=== PATIENT | female | born 1980 | race African-American/Black ===

== ENCOUNTER 2019-02-03 12:28 | Inpatient (IN) | payer OTHER ==
[~2019-02-03] VITALS: Ht 165.1 cm; Wt 97.5 kg
[~2019-02-03 12:28] MED LIST: NKM
--- NOTE | 2019-02-03 12:31 | NUR ---
ED Nurse Note: PT BIBA R34 from home c/o chest pain x 1day, pt reports it started hurting at home, denies sob but reports hurts more when pt breathing in. noted tenderness on under left breast rib area worsen on palpation. 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 ERMD at the bedside.
[2019-02-03 12:34] VITALS: BP 124/87
--- NOTE | 2019-02-03 12:36 | Emergency Room Report ---
History of Present Illness General Chief Complaint: Chest Pain Source: Patient Present Illness HPI Patient presents by paramedics for reports of chest pain reports that is been off and on for the past month however today she felt the symptoms worse Denies any pleurisy denies any change with position Denies any vomiting or diarrhea denies any back or flank pain Patient reports history of smoking marijuana Denies any recent trauma Denies any travel Pain is left upper chest sharp Allergies: Coded Allergies: LACTOSE (Unverified Allergy, Unknown, 02/03/19) Shrimp (Unverified Allergy, Unknown, 02/03/19) Patient History Past Medical History: see triage record Pertinent Family History: none Reviewed Nursing Documentation: PMH: Agreed; PSxH: Agreed Nursing Documentation-PMH Past Medical History: No History, Except For Hx Cardiac Problems: Yes - CHF Review of Systems All Other Systems: negative except mentioned in HPI Physical Exam Vital Signs Date Time Temp Pulse Resp B/P (MAP) Pulse Ox O2 Delivery O2 Flow Rate FiO2 02/03/19 12:20 99.3 82 18 116/77 (90) 100 Room Air Sp02 EP Interpretation: reviewed, normal General Appearance: well appearing, no apparent distress Head: normocephalic, atraumatic Eyes: bilateral eye PERRL, bilateral eye EOMI ENT: hearing grossly normal, normal pharynx, TMs + canals normal, uvula midline Neck: full range of motion, supple, no meningismus, no bony tend Respiratory: lungs clear, normal breath sounds, no rhonchi, no respiratory distress, no retraction, no accessory muscle use Cardiovascular #1: normal peripheral pulses, regular rate, rhythm, no edema, no gallop, no JVD, no murmur Gastrointestinal: normal bowel sounds, non tender, soft, no mass, no organomegaly, non-distended, no guarding, no hernia, no pulsatile mass, no rebound Genitourinary: no CVA tenderness Musculoskeletal: normal inspection Neurologic: oriented x3, responsive, security systems installer III-XII nml as tested, motor strength/ tone normal, sensory intact Psychiatric: mood/affect normal Skin: normal color, no rash, warm/dry, palpation normal Lymphatic: normal inspection, no adenopathy Medical Decision Making Diagnostic Impression: Primary Impression: Acute CHF ER Course patient is a fairly complex patient with multiple differential to consideration including but not limited to cardiac cardiopulmonary and vascular emergencies Patient's x-ray shows concerning findings of congestion Further blood work was initiated and BNP does confirm increased elevation Patient CT chest does not show obvious embolism patient was further diuresed and requires inpatient care Labs Test 02/03/19 18:15 02/04/19 05:24 02/05/19 07:49 Troponin I 0.032 ng/mL (0.000-0.056) 0.026 ng/mL (0.000-0.056) White Blood Count 5.5 K/UL (4.8-10.8) Red Blood Count 5.22 M/UL (4.20-5.40) Hemoglobin 14.1 G/DL (12.0-16.0) Hematocrit 44.1 % (37.0-47.0) Mean Corpuscular Volume 84 FL (80-99) Mean Corpuscular Hemoglobin 27.0 PG (27.0-31.0) Mean Corpuscular Hemoglobin Concent 32.0 G/DL (32.0-36.0) Red Cell Distribution Width 13.6 % (11.6-14.8) Platelet Count 263 K/UL (150-450) Mean Platelet Volume 8.9 FL (6.5-10.1) Neutrophils (%) (Auto) 43.6 % (45.0-75.0) Lymphocytes (%) (Auto) 46.1 % (20.0-45.0) Monocytes (%) (Auto) 3.7 % (1.0-10.0) Eosinophils (%) (Auto) 5.4 % (0.0-3.0) Basophils (%) (Auto) 1.2 % (0.0-2.0) Sodium Level 141 MMOL/L (136-145) 140 MMOL/L (136-145) Potassium Level 3.1 MMOL/L (3.5-5.1) 3.8 MMOL/L (3.5-5.1) Chloride Level 105 MMOL/L (98-107) 106 MMOL/L (98-107) Carbon Dioxide Level 31 MMOL/L (21-32) 27 MMOL/L (21-32) Anion Gap 5 mmol/L (5-15) 7 mmol/L (5-15) Blood Urea Nitrogen 16 mg/dL (7-18) 16 mg/dL (7-18) Creatinine 0.9 MG/DL (0.55-1.30) 0.9 MG/DL (0.55-1.30) Estimat Glomerular Filtration Rate > 60 mL/min (>60) > 60 mL/min (>60) Glucose Level 104 MG/DL (74-106) 94 MG/DL (74-106) Calcium Level 8.6 MG/DL (8.5-10.1) 8.8 MG/DL (8.5-10.1) Magnesium Level 1.9 MG/DL (1.8-2.4) Pro-B-Type Natriuretic Peptide 1458 pg/mL (0-125) EKG Diagnostic Results Rate: normal Rhythm: NSR ST Segments: other - Non-specific ST, T wave changes Rhythm Strip Diag. Results EP Interpretation: yes Rate: 67 Rhythm: NSR, no PVC's, no ectopy Chest X-Ray Diagnostic Results Chest X-Ray Diagnostic Results : Chest X-Ray Ordered: Yes # of Views/Limited/Complete: 1 View Indication: Chest Pain EP Interpretation: Yes Interpretation: no consolidation, no effusion, other - pulmonary Congestion Impression: Other - Pulmonary congestion Electronically Signed by: Erich Moreira DO CT/MRI/US Diagnostic Results CT/MRI/US Diagnostic Results : Impression CT chestIMPRESSION: 1. No pulmonary embolus identified. 2. No aortic aneurysm or dissection. 3. Interlobular septal thickening, compatible with fluid overload. Bronchial wall thickening may represent bronchitis versus fluid overload. 4. Mild groundglass opacity in the left upper lobe may represent pulmonary edema versus infectious/inflammatory process. 5. Cardiomegaly. Last Vital Signs Date Time Temp Pulse Resp B/P (MAP) Pulse Ox O2 Delivery O2 Flow Rate FiO2 02/03/19 12:20 99.3 82 18 116/77 (90) 100 Room Air Status: improved Disposition: ADMITTED INPATIENT Condition: Erich Lebron DO Feb 03, 2019 12:36
[2019-02-03] MEDS ORDERED: HYDROcodone/Acetamin 10/325 tab ORAL ONE (12:45)
[2019-02-03] MEDS ORDERED: Ketorolac 60mg Inj IM ONE (12:45)
[2019-02-03] MEDS ORDERED: Isovue-370 150ml vial INJ PRN (13:00)
[2019-02-03] MEDS ORDERED: DiphenhydrAMINE 50mg/ml Inj IVP ONE (13:00)
--- NOTE | 2019-02-03 13:12 | Diagnostic Imaging Report ---
EXAM: XR Chest, 1 View CLINICAL HISTORY: CP TECHNIQUE: Frontal view of the chest. COMPARISON: None FINDINGS: Hardware: None. Lungs/pleura: Pulmonary vasculature congestion/pulmonary edema. No focal consolidation. No pleural effusion or pneumothorax. Heart/mediastinum: Mild enlargement of the cardiac silhouette. Soft tissues: Unremarkable. Bones: No acute fracture. Upper abdomen: Normal. IMPRESSION: Mild enlargement of the cardiac silhouette with pulmonary vasculature congestion/edema.
--- NOTE | 2019-02-03 13:50 | NUR ---
ED Nurse Note: PT APPEARS TO BE CALMER AT THIS TIME. VSS. PT WENT TO THE RESTROOM WITH STEADY GAIT.
[2019-02-03 13:53] LABS: BASOPHILS % (AUTO) 1.6 % (0.0-2.0); EOSINOPHILS % (AUTO) 1.9 % (0.0-3.0); HEMOGLOBIN 13.3 G/DL (12.0-16.0); LYMPHOCYTES % (AUTO) 29.3 % (20.0-45.0); MEAN CORPUSCULAR VOLUME 85 FL (80-99); MONOCYTES % (AUTO) 6.6 % (1.0-10.0); NEUTROPHILS % (AUTO) 60.7 % (45.0-75.0); PLATELET COUNT 254 K/UL (150-450); RED BLOOD COUNT 4.84 M/UL (4.20-5.40); RED CELL DISTRIBUTION WIDTH 13.7 % (11.6-14.8)
--- NOTE | 2019-02-03 13:55 | NUR ---
ED Nurse Note: PT CAME BACK FROM REST ROOM. VSS.
[2019-02-03 14:06] LABS: ANION GAP 5 mmol/L (5-15); BLOOD UREA NITROGEN 15 mg/dL (7-18); CALCIUM 8.5 MG/DL (8.5-10.1); CARBON DIOXIDE 27 MMOL/L (21-32); CHLORIDE 109 MMOL/L (98-107); CREATININE 0.7 MG/DL (0.55-1.30); POTASSIUM 4.5 MMOL/L (3.5-5.1); SODIUM 141 MMOL/L (136-145)
[2019-02-03 14:24] LABS: ALANINE AMINOTRANSFERASE 62 U/L (12-78); ALBUMIN 2.7 G/DL (3.4-5.0); ALBUMIN/GLOBULIN RATIO 0.9 (1.0-2.7); ALKALINE PHOSPHATASE 55 U/L (46-116); ASPARTATE AMINO TRANSFERASE 47 U/L (15-37); BILIRUBIN,TOTAL 0.4 MG/DL (0.2-1.0); CKMB 1.6 NG/ML (0.0-3.6); CREATINE KINASE 163 U/L (26-308)
[2019-02-03 14:30] VITALS: BP 135/70
--- NOTE | 2019-02-03 14:39 | NUR ---
ED Nurse Note: PT TAKEN TO CT.
--- NOTE | 2019-02-03 14:50 | NUR ---
ED Nurse Note: PT BACK FROM CT VIA KERRY. PT WANTED TO GO TO RESTROOM TO URINATE AGAIN.
--- NOTE | 2019-02-03 15:57 | NUR ---
ED Nurse Note: REPORT GIVEN TO TANK KATZ OF TELEMETRY UNIT.
--- NOTE | 2019-02-03 16:00 | NUR ---
ED Nurse Note: ER CHARGE NURSE OKAY TO TRANSFER PT WITHOUT ADMISSION PACKET.
--- NOTE | 2019-02-03 16:20 | NUR ---
NURSE NOTES: Received report from GIANNA Hall. Patient transferred from ED to tele. panel monitor on. Belonging list checked with RN, patient refused to count on money, $55. Patient able to ambulate from [facility] to [facility] bed steady, AOx4, denies pain at this time, patient on room air. VS at the time of arrival, BP 134/87, HR 90, T 98.5, O2 sat 95%. IV on right AC 20G, left hand 20G, asymptomatic, patent, intact. Skin is intact, patient wear abdominal blinder for umbilical hernia. Bed in lowest position, side rails upx2, call light within reach. Will continue to monitor.
--- NOTE | 2019-02-03 16:24 | Diagnostic Imaging Report ---
EXAM: CT Angiography Chest With Intravenous Contrast CLINICAL HISTORY: CP TECHNIQUE: Axial computed tomographic angiography images of the chest with intravenous contrast using pulmonary embolism protocol. CTDI is 36.85 mGy and DLP is 1278.63 mGy-cm. One or more of the following dose reduction techniques were used: automated exposure control, adjustment of the mA and/or kV according to patient size, use of iterative reconstruction technique. MIP reconstructed images were created and reviewed. COMPARISON: Chest radiograph on 02/03/2019 FINDINGS: Lung parenchyma: Interlobular septal thickening is suggestive of fluid overload. Mild groundglass opacity in the left upper lobe may represent pulmonary edema versus infectious/inflammatory process. Pleural space: Small right greater than left pleural effusions. Mediastinum/nida: Nonspecific prominent mediastinal and hilar lymph nodes. Heart: Mild cardiomegaly. No significant pericardial effusion. Vasculature: Normal. No pulmonary embolus. Aorta: Normal. No aneurysm or dissection. Airways: Bronchial wall thickening may represent bronchitis versus fluid overload. Bones: Normal. No bony lesion or acute fracture. Muscles: No mass. Subcutaneous tissues: Normal. Upper abdomen: Normal. IMPRESSION: 1. No pulmonary embolus identified. 2. No aortic aneurysm or dissection. 3. Interlobular septal thickening, compatible with fluid overload. Bronchial wall thickening may represent bronchitis versus fluid overload. 4. Mild groundglass opacity in the left upper lobe may represent pulmonary edema versus infectious/inflammatory process. 5. Cardiomegaly.
--- NOTE | 2019-02-03 16:52 | NUR ---
NURSE NOTES: Paged Dr. Barker for admission order, per Dr. Barker, call Dr. Vargas for admission order. Paged Dr. Vargas for admission order. Admission orders noted, entered, carried out. Will continue to monitor.
--- NOTE | 2019-02-03 16:53 | NUR ---
NURSE NOTES: Dr. Vargas made aware D-dimer 1.32, new orders given with admission orders. Order noted, entered, carried out.
[2019-02-03] MEDS ORDERED: Albuterol/Ipratropium 3ml neb HHN PRN (17:15)
[2019-02-03] MEDS: Captopril 12.5mg tab ORAL SCH (17:57)
--- NOTE | 2019-02-03 18:34 | History & Physical ---
History and Physical History & Physicial History and Physical HPI Patient is a 38 year old woman with history of Congestive Heart Failure who presents with chest pain reports that is been off and on for the past month however today she felt the symptoms worse Pain is left upper chest sharp Denies any pleurisy denies any change with position Denies any vomiting or diarrhea denies any back or flank pain No Cardiac ischemia noted on EK< Pulmonary Congestion on CXR, No PE on CT angiogram Patient reports history of smoking marijuana Denies any recent trauma Denies any recent travel Allergies: LACTOSE Shrimp Past Medical History: Congestive Heart Failure Pertinent Family History: none Reviewed Nursing Documentation: PMH: Agreed; PSxH: Agreed All Other Systems: negative except mentioned in HPI Physical Exam Vital Signs Noted Date Time Temp Pulse Resp B/P (MAP) Pulse Ox O2 Delivery O2 Flow Rate FiO2 02/03/19 12:20 99.3 82 18 116/77 (90) 100 Room Air General Appearance: well appearing, no apparent distress Head: normocephalic, atraumatic Eyes: bilateral eye PERRL, bilateral eye EOMI ENT: hearing grossly normal, normal pharynx Neck: full range of motion, supple, no meningismus, no bony tend Respiratory: lungs clear, normal breath sounds, no rhonchi, no respiratory distress, no retraction, no accessory muscle use Cardiovascular: HS1, HS2 normal, normal peripheral pulses, regular rate, rhythm , no edema, no gallop, no JVD, no murmur Gastrointestinal: normal bowel sounds, non tender, soft, no mass, no organomegaly, non-distended, no guarding, no hernia, no pulsatile mass, no rebound Genitourinary: no CVA tenderness Musculoskeletal: normal inspection Neurologic: oriented x3, responsive, straightener and aligner III-XII nml as tested, motor strength/ tone normal, sensory intact Psychiatric: mood/affect normal Skin: normal color, no rash, warm/dry, palpation normal Lymphatic: normal inspection, no adenopathy Labs noted EKG noted Impression: Congestive Heart Failure Chest pain CT chest negative for PE Pulmonary congestion on CXR Troponin negative Plan: Diurese PRN O2 PRN Pain Meds LE dupplex Labs Pain meds Cardiac Consultation PPX Tom Vargas MD Feb 03, 2019 18:34
--- NOTE | 2019-02-03 19:20 | NUR ---
HAND-OFF: Report given to GIANNA Clark.
--- NOTE | 2019-02-03 19:20 | NUR ---
NURSE NOTES: Received patient from Handy RN. Patient is in bed with no signs of distress and tolerating room air well. Oriented X4 and talking. Bed is at its lowest position and call light in reach. Will continue to monitor.
[2019-02-03] MEDS: Heparin 5000 units/ml inj SUBQ SCH (21:28)
[2019-02-03] MEDS: Hydromorphone 0.5mg/0.5ml inj IVP PRN (22:28)
[2019-02-04] MEDS: Hydromorphone 0.5mg/0.5ml inj IVP PRN ×2 (04:11→16:46)
[2019-02-04 07:14] LABS: BASOPHILS % (AUTO) 1.2 % (0.0-2.0); EOSINOPHILS % (AUTO) 5.4 % (0.0-3.0); HEMATOCRIT 44.1 % (37.0-47.0); HEMOGLOBIN 14.1 G/DL (12.0-16.0); LYMPHOCYTES % (AUTO) 46.1 % (20.0-45.0); MEAN CORPUSCULAR VOLUME 84 FL (80-99); MONOCYTES % (AUTO) 3.7 % (1.0-10.0); NEUTROPHILS % (AUTO) 43.6 % (45.0-75.0); PLATELET COUNT 263 K/UL (150-450); RED BLOOD COUNT 5.22 M/UL (4.20-5.40); RED CELL DISTRIBUTION WIDTH 13.6 % (11.6-14.8); WHITE BLOOD COUNT 5.5 K/UL (4.8-10.8)
--- NOTE | 2019-02-04 07:30 | NUR ---
HAND-OFF: Report given to Karis KATZ.
[2019-02-04 07:38] LABS: ANION GAP 5 mmol/L (5-15); BLOOD UREA NITROGEN 16 mg/dL (7-18); CALCIUM 8.6 MG/DL (8.5-10.1); CARBON DIOXIDE 31 MMOL/L (21-32); CHLORIDE 105 MMOL/L (98-107); CREATININE 0.9 MG/DL (0.55-1.30); POTASSIUM 3.1 MMOL/L (3.5-5.1); SODIUM 141 MMOL/L (136-145)
--- NOTE | 2019-02-04 07:49 | Physician Query ---
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 BNP 3302, trop 0.023/0.032 , cxr- mild enlargement of cardiac silhouette with pulmonary vasculature congestion/edema. Lasix 20 mg ivp bid, captopril 6.25 mg tid. CHF documented in the history and physcial. Please Clarify: Acuity [] Acute [] Chronic [] Acute on Chronic Type [] Systolic [] Diastolic [] Systolic & Diastolic (Combined) [] Other: Present on Admission: [] Yes [] No [] Clinically Undetermined Physician signature Date Please also document in your Progress Notes and/or Discharge Summary and indicate if the condition was present on admission. MTDD
--- NOTE | 2019-02-04 07:56 | NUR ---
NURSE NOTES: Patient is alert and oriented. Patient eating breakfast. No reports of chest pain or shortness of breath. Side rails are upx2, bed is locked, in lowest position, and call light is within reach. Will continue to monitor.
[2019-02-04 08:00] VITALS: BP 146/90
[2019-02-04] MEDS: Captopril 12.5mg tab ORAL SCH ×3 (08:56→17:18)
[2019-02-04] MEDS: Heparin 5000 units/ml inj SUBQ SCH ×2 (08:57→20:41)
[2019-02-04 12:00] VITALS: BP 114/78
[2019-02-04] MEDS ORDERED: HYDROcodone/Acetamin 5/325 tab ORAL PRN (14:00)
[2019-02-04 16:00] VITALS: BP 107/71
--- NOTE | 2019-02-04 18:48 | NUR ---
NURSE NOTES: Patient reports perineal discomfort. Dr. Vargas notified. New order received.
--- NOTE | 2019-02-04 18:48 | Pulmonology Progress Note ---
Assessment/Plan Assessment/Plan Progress Note HPI Patient is a 38 year old woman with history of Congestive Heart Failure who presents with chest pain reports that is been off and on for the past month however today she felt the symptoms worse Pain is left upper chest sharp Denies any pleurisy denies any change with position Denies any vomiting or diarrhea denies any back or flank pain No Cardiac ischemia noted on EK< Pulmonary Congestion on CXR, No PE on CT angiogram Patient reports history of smoking marijuana Denies any recent trauma Denies any recent travel No new complaints Allergies: LACTOSE Shrimp Past Medical History: Congestive Heart Failure Pertinent Family History: none Reviewed Nursing Documentation: PMH: Agreed; PSxH: Agreed All Other Systems: negative except mentioned in HPI Physical Exam Vital Signs Noted General Appearance: well appearing, no apparent distress Head: normocephalic, atraumatic Eyes: bilateral eye PERRL, bilateral eye EOMI ENT: hearing grossly normal, normal pharynx Neck: full range of motion, supple, no meningismus, no bony tend Respiratory: lungs clear, normal breath sounds, no rhonchi, no respiratory distress, no retraction, no accessory muscle use Cardiovascular: HS1, HS2 normal, normal peripheral pulses, regular rate, rhythm , no edema, no gallop, no JVD, no murmur Gastrointestinal: normal bowel sounds, non tender, soft, no mass, no organomegaly, non-distended, no guarding, no hernia, no pulsatile mass, no rebound Genitourinary: no CVA tenderness Musculoskeletal: normal inspection Neurologic: oriented x3, responsive, instrumentation chemist III-XII nml as tested, motor strength/ tone normal, sensory intact Psychiatric: mood/affect normal Skin: normal color, no rash, warm/dry, palpation normal Lymphatic: normal inspection, no adenopathy Labs noted EKG noted Impression: Congestive Heart Failure Chest pain CT chest negative for PE Pulmonary congestion on CXR Troponin negative Plan: Diurese PRN O2 PRN Pain Meds LE dupplex Labs Pain meds Cardiac Consultation PPX Subjective ROS Limited/Unobtainable: No Allergies: Coded Allergies: LACTOSE (Unverified Allergy, Unknown, 02/03/19) Shrimp (Unverified Allergy, Unknown, 02/03/19) Objective Last 24 Hour Vital Signs Date Time Temp Pulse Resp B/P (MAP) Pulse Ox O2 Delivery O2 Flow Rate FiO2 02/04/19 17:18 109/76 02/04/19 16:00 98.7 98 18 107/71 (83) 100 02/04/19 16:00 100 02/04/19 12:44 114/78 02/04/19 12:00 98.1 96 18 114/78 (90) 99 02/04/19 12:00 103 02/04/19 08:56 146/90 02/04/19 08:14 99 18 96 Room Air 21 02/04/19 08:00 108 02/04/19 08:00 97.7 99 18 146/90 (108) 96 02/04/19 08:00 Room Air 02/04/19 03:54 101 02/04/19 00:00 90 02/03/19 22:12 92 18 98 Room Air 21 02/03/19 21:00 Room Air Intake and Output 02/03/19 02/04/19 19:00 07:00 Intake Total 150 ml 200 ml Balance 150 ml 200 ml Intake Oral 150 ml 200 ml # Voids 1 Laboratory Tests 02/04/19 05:24: White Blood Count 5.5, Red Blood Count 5.22, Hemoglobin 14.1, Hematocrit 44.1, Mean Corpuscular Volume 84, Mean Corpuscular Hemoglobin 27.0, Mean Corpuscular Hemoglobin Concent 32.0, Red Cell Distribution Width 13.6, Platelet Count 263, Mean Platelet Volume 8.9, Neutrophils (%) (Auto) 43.6L, Lymphocytes (%) (Auto) 46.1H, Monocytes (%) (Auto) 3.7, Eosinophils (%) (Auto) 5.4H, Basophils (%) ( Auto) 1.2, Sodium Level 141, Potassium Level 3.1L, Chloride Level 105, Carbon Dioxide Level 31, Anion Gap 5, Blood Urea Nitrogen 16, Creatinine 0.9, Estimat Glomerular Filtration Rate > 60, Glucose Level 104, Calcium Level 8.6, Troponin I 0.026 Current Medications Medications (Trade) Dose Ordered Sig/[place] Route PRN Reason Start Time Stop Time Status Last Admin Dose Admin Acetaminophen (Tylenol) 650 mg Q6H PRN ORAL Mild Pain/Temp > 100.5 02/03/19 17:15 03/05/19 17:14 Acetaminophen/ Hydrocodone Bitart ([place] 5/325) 1 tab Q6H PRN ORAL Moderate Pain (Pain Scale 4-6) 02/04/19 14:00 02/11/19 13:59 02/04/19 14:11 Albuterol/ Ipratropium (Albuterol/ Ipratropium) 3 ml Q6H PRN HHN Shortness of breath 02/03/19 17:15 02/08/19 17:14 Captopril (Capoten) 6.25 mg TID ORAL 02/03/19 18:00 03/05/19 17:59 02/04/19 12:44 Diphenhydramine HCl (Benadryl) 25 mg Q6H PRN ORAL Itching 02/03/19 17:15 03/05/19 17:14 Doxycycline Monohydrate (Doxycycline Monohydrate) 100 mg BID ORAL 02/04/19 09:00 02/10/19 22:59 02/04/19 17:25 Furosemide (Lasix) 20 mg BID IV 02/03/19 18:00 03/05/19 17:59 02/04/19 17:25 Heparin Sodium (Porcine) (Heparin 5000 units/ml) 5,000 units EVERY 12 HOURS SUBQ 02/03/19 21:00 03/05/19 20:59 02/04/19 08:57 Hydromorphone HCl (Dilaudid) 0.5 mg Q3H PRN IVP Severe Pain (Pain Scale 7-10) 02/03/19 17:15 02/10/19 17:14 02/04/19 16:46 Iopamidol (Isovue-370 150ml) 150 ml NOW PRN INJ Radiology Procedure 02/03/19 13:00 02/05/19 12:59 Ondansetron HCl (Zofran) 4 mg Q8H PRN IVP Nausea & Vomiting 02/03/19 17:15 03/05/19 17:14 02/04/19 16:46 Potassium Chloride (K-Dur) 20 meq DAILY ORAL 02/04/19 09:00 03/06/19 08:59 02/04/19 08:53 Tom Vargas MD Feb 04, 2019 18:48
--- NOTE | 2019-02-04 19:24 | NUR ---
HAND-OFF: Report given to GIANNA Gonzales.
--- NOTE | 2019-02-04 19:25 | NUR ---
NURSE NOTES: Received bedside report from GIANNA Marquez.Patient stable,A&O x4,ST on hospital monitor, tolerated r/air well,no c/o pain,no respiratory distress noted,BS active in all quadrants,skin intact.IV asymptomatic,intact on L hand G 22 SL,bed secured,call light within a reach,family at bedside,will continue to monitor
[2019-02-04 20:00] VITALS: BP 117/75
[2019-02-04] MEDS: Miconazole 2% Cr 15gm TOPIC SCH (20:41)
--- NOTE | 2019-02-04 23:40 | NUR ---
NURSE NOTES: Pt became mad d/t positive PCP urine test and Marijuana,she stats that it is mistake and she wants to leave AMA,pt removed child monitor,charge nurse aware.
--- NOTE | 2019-02-04 23:45 | Progress Note ---
DATE: 02/04/2019 CARDIOLOGY PROGRESS NOTE SUBJECTIVE: The patient is quite agitated and upset about the results of her tox screen. She denies taking drugs. She is also on a 1 step program and states that she will "be in trouble" if they found out these results. The patient has sharp chest pain. No shortness of breath. OBJECTIVE: VITAL SIGNS: Blood pressure 109/76, pulse 98, respirations 18. LUNGS: Clear. CARDIAC: Regular rhythm and rate. Normal S1, S2 with a 1/6 systolic murmur at apex. ABDOMEN: Soft. EXTREMITIES: Trace edema. LABORATORY AND DIAGNOSTIC DATA: CT angiogram of the chest was negative for any pulmonary embolus or aortic aneurysm/dissection. Potassium 3.1. Troponins remained negative. Pro-natriuretic peptide yesterday was 3300. Echocardiogram revealed a ejection fraction of 25% with global hypokinesis. IMPRESSION: 1. Drug-induced cardiomyopathy. 2. Acute on chronic systolic congestive heart failure. 3. PCP use. 4. Marijuana use. 5. Low likelihood for acute coronary insufficiency. PLAN: 1. Maximize anti-failure regimen. We will switch to once a day RADHA inhibitor for better compliance. 2. Long-term diuretic therapy. 3. Re-evaluation in three months for cardiac defibrillator if she is compliant with medications and drugs. Tom Tsai M.D. DR: PRAITMA JOB#: [id number] CC:
[2019-02-05] VITALS: BP 114/78
--- NOTE | 2019-02-05 | NUR ---
NURSE NOTES: Pt changed her mind and stay in a hospital,radiographer technologist refused.
--- NOTE | 2019-02-05 | Consultation ---
DATE OF CONSULTATION: 02/04/2019 CARDIOLOGY CONSULT: CONSULTING PHYSICIAN: Tom Tsai M.D. REFERRING PHYSICIAN: Jones Barker M.D. REASON FOR CONSULTATION: Chest pain. HISTORY OF PRESENT ILLNESS: This is a 38-year-old female. She presented to the hospital with chest pain. Her workup in the emergency room included a negative troponin level. CT angiogram of the chest that was negative for pulmonary embolus and/or aortic dissection and a natriuretic peptide over 3000. PAST MEDICAL HISTORY: Drug use. FAMILY HISTORY: Noncontributory. SOCIAL HISTORY: As above. She denies smoking or alcohol abuse. ALLERGIES: Include lactose and shrimp. MEDICATIONS: Not known. PHYSICAL EXAMINATION: VITAL SIGNS: Blood pressure 116/77, pulse 82, respirations 18, temperature 99.3. LUNGS: With few rales. CARDIAC: Regular rhythm and rate. Normal S1, S2 with a 1/6 systolic murmur at apex. Point of maximum impulse is diffuse. ABDOMEN: Soft. EXTREMITIES: With trace edema. DIAGNOSTIC AND LABORATORY DATA: Chest x-ray with pulmonary venous congestion. Drug tox screen is positive for PCP and marijuana. IMPRESSION: 1. Acute on chronic congestive heart failure, systolic versus diastolic. 2. Anginal syndrome. 3. PCP abuse. PLAN: 1. Diuresis. 2. Serial troponins. 3. Cardiac monitoring. 4. Anti-platelet therapy. 5. PRN nitrates. 6. Avoid beta-blockers in this clinical setting. Tom Tsai M.D. DR: FANTA JOB#: [id number] CC:
--- NOTE | 2019-02-05 07:00 | NUR ---
HAND-OFF: Report given to GIANNA Marquez.Patient stable.
--- NOTE | 2019-02-05 07:44 | NUR ---
NURSE NOTES: Patient is alert and oriented. Patient does not have reports of chest pain or shortness of breath. Side rails are up x2, bed is locked, in lowest position, and call light is within reach. Will continue to monitor.
--- NOTE | 2019-02-05 07:55 | NUR ---
NURSE NOTES: Patient not wearing media monitor. Patient removed monitor last night and refused to have it put back on.
[2019-02-05 08:00] VITALS: BP 112/64
[2019-02-05] MEDS: Heparin 5000 units/ml inj SUBQ SCH (09:00)
[2019-02-05] MEDS ORDERED: Lisinopril 20mg tab ORAL SCH (09:00)
[2019-02-05] MEDS ORDERED: Spironolactone 25mg tab ORAL SCH (09:00)
[2019-02-05] MEDS: Miconazole 2% Cr 15gm TOPIC SCH (09:25)
[2019-02-05 09:34] LABS: ANION GAP 7 mmol/L (5-15); BLOOD UREA NITROGEN 16 mg/dL (7-18); CALCIUM 8.8 MG/DL (8.5-10.1); CARBON DIOXIDE 27 MMOL/L (21-32); CHLORIDE 106 MMOL/L (98-107); CREATININE 0.9 MG/DL (0.55-1.30); POTASSIUM 3.8 MMOL/L (3.5-5.1); SODIUM 140 MMOL/L (136-145)
--- NOTE | 2019-02-05 09:56 | NUR ---
*-* NO INSURANCE INFORMATION IN THE BAR UNABLE TO SEND CLINICALS OR REVIEWS *-*
[2019-02-05 12:00] VITALS: BP 114/74
--- NOTE | 2019-02-05 14:46 | NUR ---
CASE MANAGEMENT:REVIEW 38 YR OLD FEMALE BIBA FROM HOME CC; CHEST PAIN SI: CHEST PAIN. CHF 99.3 82 18 116/77 100% ON RA BNP+3302 TROPONIN(-) URINE(+) PCP IS: ASA PO GIVEN EN ROUTE NITRO GIVEN EN ROUTE IV TORADOL PERCOCET PO IV BENADRYL IV LASIX X2 CTA CHEST CHEST XRAY : TO TELEMETRY PLAN: 2DECHO VENOUS DUPLEX
[2019-02-05 16:00] VITALS: BP 128/81
[2019-02-05] MEDS ORDERED: LISINOPRIL20 MG ORAL (16:15)
[2019-02-05] MEDS ORDERED: FUROSEMIDE20 M1 ORAL (16:15)
[2019-02-05] MEDS ORDERED: SPIRONOLACTONE25 MG ORAL (16:16)
[2019-02-05] MEDS ORDERED: VIBRAMYCIN100 MG ORAL (16:17)
[2019-02-05] MEDS ORDERED: ALBUTEROL2.5 MG/3 M INH (16:19)
[2019-02-05] MEDS ORDERED: MICONAZOLE 324 GM VG (16:19)
--- NOTE | 2019-02-05 16:41 | NUR ---
Social Service Note Patient denies substance abuse and states someone tainted her urine. Patient willing to give another urine sample to clear her name. Patient discharge. Letter completed to return to work.
--- NOTE | 2019-02-05 17:30 | NUR ---
NURSE NOTES: Patient discharged Home. Patient arranged own transportation. Belongings reviewed and accounted for. Discharge instructions with prescription given to patient. IV removed. ID bracelet removed. Patient stable upon discharge.
--- NOTE | 2019-02-06 03:31 | Progress Note ---
DATE: 02/05/2019 SUBJECTIVE: The patient continues to insist that she has not used PCP and insists that someone tainted her urine. No chest pain. Vitals are stable. No clinical signs of acute congestive heart failure. This patient has severe cardiomyopathy with systolic dysfunction likely due to chronic drug use. Medication regimen reviewed, reconciled, and discussed with the patient for long-term benefit. The patient is also advised to avoid PCP as it can lead to further cardiac compromise and sudden cardiac . Tom Tsai M.D. DR: JERMAINE JOB#: [id number] CC:
--- NOTE | 2019-02-06 10:02 | Discharge Summary ---
Discharge Summary Discharge Summary _ DATE OF ADMISSION: 02/03/2019 DATE OF DISCHARGE: 02/05/2019 DISCHARGED BY: Dr. Vargas REASON FOR ADMISSION: 38 years old female with past medical history of congestive heart failure , presented with chest pain. Pain located in left upper chest, sharp , no radiation. She denied any pleurisy. She denied change in chest pain with change in position. She denied nausea, vomiting, diarrhea. She denied back or flank pain. Patient reported smoking of marijuana. No recent trauma or injury to chest. Upon evaluation vital signs were stable. Chest x-ray revealed mild enlargement of the cardiac silhouette with pulmonary vasculature congestion/edema. CT of the chest revealed bronchial wall thickening, possibly representing bronchitis versus fluid overload. Mild cardiomegaly. No pulmonary emboli. Mild ground-glass opacity in the left upper lobe, possibly representing pulmonary edema versus infectious/inflammatory process. No aortic aneurysm or dissection. Laboratory work-up revealed no leukocytosis, stable hemoglobin and hematocrit. Troponin negative. EKG revealed normal sinus rhythm, no acute ischemic changes. Stable electrolytes and renal parameters. Pro BNP 3302. Urine toxicology screen positive for PCP and marijuana Urine test negative. Patient subsequently admitted to telemetry floor for further management CONSULTANTS: platform inspector Dr. Tsai [facility]SE: Patient admitted to telemetry floor. Patient started on diuresis with close monitoring of volumes and cardiorenal parameters. Supplemental oxygen provided as needed to keep pulse oximetry above 92%. Pulmonary toilet provided. Patient started on empiric antibiotics. Pain management was addressed. DVT and GI prophylaxis provided Control Integration Engineer followed. Echocardiogram revealed global left ventricular hypokinesis with ejection fraction of 20 to 25%. No evidence of left ventricular hypertrophy. Moderate left ventricular enlargement. Moderate mitral regurgitation. Mitral inflow indicated increased left atrial pressure suggestive restrictive pattern grade 3. Right ventricular systolic pressure of 40 consistent with a mild pulmonary hypertension. Mild to moderate pulmonic regurgitation. Serial troponin were negative. EKG revealed no acute ischemia. Patient was ruled out for acute SD. Chest pain was likely due to acute CHF exacerbation. Anti-failure medication regimen was maximized. Patient will require long-term diuretic therapy. Patient was on guideline recommended anti-failure medication regimen, including RADHA , and diuretic Lasix and Aldactone. Beta-blockers were avoided in this clinical setting due to active drug use. Nitrates were on board as needed. Per platform inspector , patient had a low likelihood for acute coronary insufficiency. Control Integration Engineer recommended to reevaluate in 3 months for cardiac defibrillator, if she is compliant with medication and abstinent from street drugs Patient clinically stabilized. No chest pain. Vital signs stable. No clinical signs of acute congestive heart failure. Patient was explained that she had severe cardiomyopathy with systolic dysfunction, likely due to chronic drug use. Patient was counseled on compliance with medication regimen. Patient was advised to avoid PCP as it can lead to further cardiac compromise and sudden cardiac . nozzle worker e met with patient. Patient denied substance abuse and stated that someone tainted her urine.. Patient clinically stabilized and was ready for discharge home. FINAL DIAGNOSES: Acute on chronic systolic congestive heart failure Drug-induced cardiomyopathy PCP use Marijuana use DISCHARGE MEDICATIONS: See Medication Reconciliation list. DISCHARGE INSTRUCTIONS: Patient was discharged home . Follow up with primary care provider in one week. I have been assigned to dictate discharge summary for this account. I was not involved in the patient's management. Sofi Dillard NP Feb 06, 2019 10:02
--- NOTE | 2019-02-06 13:54 | Cardiology Report ---
APPROVED REPORT EXAM: Two-dimensional and M-mode echocardiogram with Doppler and color Doppler. INDICATION Chest Pain M-Mode DIMENSIONS IVSd1.0 (0.7-1.1cm)Left Atrium (MM)4.4 (1.6-4.0cm) LVDd7.2 (3.5-5.6cm)Aortic Root2.9 (2.0-3.7cm) PWd0.9 (0.7-1.1cm)Aortic Cusp Exc.2.3 (1.5-2.0cm) LVDs5.9 (2.5-4.0cm) PWs1.3 cm Global left ventricular hypokinesis. Moderate left ventricular enlargement. Left ventricular ejection fraction estimated to be 20-25 %. No evidence of left ventricular hypertrophy. No evidence of pericardial effusion. Mild left atrial enlargement. Mild right ventricular enlargement. Right atrial chamber size is within normal limits. Normal aortic valve structure. Thickened mitral valve leaflets with normal excursion. Mitral annulus and aortic root calcification. Normal pulmonic valve structure. Normal tricuspid valve structure. IVC is normal in size with physiological collapse. A color flow and spectral Doppler study was performed and revealed: Trace aortic regurgitation. Moderate mitral regurgitation. Mitral inflow indicates increased left atrial pressure, suggestive restrictive pattern (Grade III). Mild to moderate tricuspid regurgitation. Tricuspid systolic velocities suggests peak right ventricular systolic pressure of 40 mmHg, consistent with mild pulmonary hypertension. Mild to moderate pulmonic regurgitation present.
--- NOTE | 2019-02-06 15:07 | Cardiology Report ---
APPROVED REPORT EKG Measurement Heart [id number] Sinus tachycardia Possible Left atrial enlargement Borderline ECG
== END 2019-02-05 17:16 | disposition home or self-care (01) | DRG 194 ==
LOC: EDBD 12:28 → EMR 13:30 → EDBEDREQ 13:49 → 2E 15:00 → EDBEDREQ 15:28
DX: I50.23 Acute on chronic systolic (congestive) heart failure (principal); I27.20 Pulmonary hypertension, unspecified; I42.7 Cardiomyopathy due to drug and external agent; F16.10 Hallucinogen abuse, uncomplicated; I20.9 Angina pectoris, unspecified; F12.90 Cannabis use, unspecified, uncomplicated; I34.0 Nonrheumatic mitral (valve) insufficiency
CPT/HCPCS: 36415; 71045; 71275; 80048; 80053; 80307; 81025; 82550; 82553; 83735; 83880; 84484; 85025; 85379; 87081; 93005; 93306; 94664; 96372; 99285; J2405; J8499

== ENCOUNTER 2019-03-12 23:13 | Emergency (ER) | payer OTHER ==
[~2019-03-12] VITALS: Ht 165.1 cm; Wt 99.8 kg
[~2019-03-12 23:13] MED LIST changes: +ALBUTEROL2.5 MG/3 M INH; +FUROSEMIDE20 M1 ORAL; +LISINOPRIL20 MG ORAL; +MICONAZOLE 324 GM VG; +SPIRONOLACTONE25 MG ORAL; +VIBRAMYCIN100 MG ORAL
[2019-03-12 23:18] VITALS: BP 134/84
--- NOTE | 2019-03-12 23:18 | NUR ---
ED Nurse Note: PATIENT AMBULATED TO ED FOR STD EXPOSURE X2 DAYS. Pt is AO x 4times, VSS, on room air no distress. ERMD seen Pt at bedside.
[2019-03-13] MEDS ORDERED: Azithromycin 250mg tab ORAL ONE
[2019-03-13] MEDS ORDERED: Lidocaine 1% MPF 10mg/ml 5ml INJ ONE
[2019-03-13] MEDS ORDERED: FLUCONAZOLE150 MG ORAL (00:18)
[2019-03-13 00:24] VITALS: BP 126/79
[2019-03-13 00:25] VITALS: BP 126/79
--- NOTE | 2019-03-13 00:25 | NUR ---
ER DISCHARGE NOTE: Patient is cleared to be discharged per ERMD, pt is aox4, on room air, with stable vital signs. pt was given dc and prescription instructions, pt was able to verbalize understanding, pt id band removed without complications. pt is able to ambulate with steady gait. pt took all belongings.
--- NOTE | 2019-03-13 02:10 | Emergency Room Report ---
History of Present Illness General Chief Complaint: Female Urogenital Problems Source: Patient Present Illness HPI 38-year-old female presents ED for evaluation. Is here for concern of STD. States that last night she had unprotected sex with someone that she suspects to have STDs. Denies any vaginal discharge at this time. Denies dysuria or hematuria. No other aggravating relieving factors. Denies any other associated symptoms Allergies: Coded Allergies: LACTOSE (Unverified Allergy, Unknown, 02/03/19) Shrimp (Unverified Allergy, Unknown, 02/03/19) Patient History Past Medical History: asthma Past Surgical History: none Pertinent Family History: none Social History: Denies: smoking, alcohol use, drug use Last Menstrual Period: 02/28/19 Now: No Immunizations: UTD Reviewed Nursing Documentation: PMH: Agreed; PSxH: Agreed Nursing Documentation-PMH Past Medical History: No History, Except For Hx Cardiac Problems: Yes - CHF Hx Asthma: Yes - allergic asthma Hx Cancer: No Hx Neurological Problems: No Review of Systems All Other Systems: negative except mentioned in HPI Physical Exam Vital Signs Date Time Temp Pulse Resp B/P (MAP) Pulse Ox O2 Delivery O2 Flow Rate FiO2 03/12/19 23:15 98.8 87 12 121/89 (100) 97 Room Air Sp02 EP Interpretation: reviewed, normal General Appearance: no apparent distress, alert, GCS 15, non-toxic Head: normocephalic, atraumatic Eyes: bilateral eye normal inspection, bilateral eye PERRL ENT: hearing grossly normal, normal pharynx, no angioedema, normal voice Neck: full range of motion, supple/symm/no masses Respiratory: chest non-tender, lungs clear, normal breath sounds, speaking full sentences Cardiovascular #1: regular rate, rhythm, no edema Cardiovascular #2: 2+ carotid (R), 2+ carotid (L), 2+ radial (R), 2+ radial (L) , 2+ dorsalis pedis (R), 2+ dorsalis pedis (L) Gastrointestinal: normal bowel sounds, non tender, soft, non-distended, no guarding, no rebound Rectal: deferred Genitourinary: normal inspection, no CVA tenderness Musculoskeletal: back normal, gait/station normal, normal range of motion, non- tender Neurologic: alert, oriented x3, responsive, motor strength/tone normal, sensory intact, speech normal Psychiatric: judgement/insight normal, memory normal, mood/affect normal, no suicidal/homicidal ideation Reflexes: 3+ bicep (R), 3+ bicep (L), 3+ tricep (R), 3+ tricep (L), 3+ knee (R) , 3+ knee (L) Lymphatic: no adenopathy Medical Decision Making Diagnostic Impression: Primary Impression: Possible exposure to STD ER Course Hospital Course 38 yo F presents with concern for STD after unprotected sex Differential diagnoses include: trichimonas, gonorrhea, chlamydia Clinical course Patient placed on stretcher. After initial history physical exam reveals a female in no acute distress. Physical exam unremarkable. discussed findings with patient. We will treat clinically for STI. Given azithromycin/Rocephin in ED. we'll provide referrals to STD clinic. Diagnosis - possible exposure to STD Stable and discharged home with prescriptions for Rx diflucan. Instructed to followup with PMD. Return to ED if symptoms recur or worsen Last Vital Signs Date Time Temp Pulse Resp B/P (MAP) Pulse Ox O2 Delivery O2 Flow Rate FiO2 03/13/19 00:25 97.5 87 18 126/79 100 Room Air Status: improved Disposition: HOME, SELF-CARE Condition: Stable Scripts Fluconazole (FLUCONAZOLE) 150 Mg Tablet 150 MG ORAL ONCE for 3 Days, #3 TAB Prov: Brandon De La Cruz MD 03/13/19 Referrals: [facility]ERR[facility]PCP) [facility] Patient Instructions: Chlamydia, Female, [id number] Brandon De La Cruz MD Mar 13, 2019 02:10
== END 2019-03-13 00:30 | disposition home or self-care (01) ==
LOC: EMR 23:51
DX: Z20.2 Contact with and (suspected) exposure to infections with a predominantly sexual mode of transmission (principal); I50.9 Heart failure, unspecified; Z91.011 Allergy to milk products; Z91.013 Allergy to seafood
CPT/HCPCS: 96372; 99283; J0696; Q0144

== ENCOUNTER 2019-04-12 05:31 | Emergency (ER) | payer OTHER ==
[~2019-04-12] VITALS: Ht 165.1 cm; Wt 83.9 kg
[~2019-04-12 05:31] MED LIST changes: +FLUCONAZOLE150 MG ORAL
--- NOTE | 2019-04-12 05:35 | NUR ---
CALLED PT TO BE TRIAGED. PT NOT PRESENT IN WAITING ROOM AT THE MOMENT
--- NOTE | 2019-04-12 05:44 | NUR ---
ED Nurse Note: PT AMBULATED TO ED. PT STATES "I NEED A REFILL FOR MY SPIRONOLACTONE PRESCRIPTION". Pt is AO x 4times, VSS, on room air no distress. ERMD seen Pt at bedside.
[2019-04-12 05:45] VITALS: BP 139/88
[2019-04-12] MEDS ORDERED: FUROSEMIDE20 M1 ORAL (05:50)
[2019-04-12] MEDS ORDERED: LISINOPRIL20 MG ORAL (05:50)
[2019-04-12] MEDS ORDERED: SPIRONOLACTONE25 MG ORAL (05:50)
--- NOTE | 2019-04-12 05:50 | Emergency Room Report ---
History of Present Illness General Chief Complaint: Medication Refill Source: Patient Present Illness HPI 38-year-old female presents with medication refill, she has no complaints of chest pain or shortness of breath no abdominal pain, she ran out of meds 2 days ago, Allergies: Coded Allergies: LACTOSE (Unverified Allergy, Unknown, 02/03/19) Shrimp (Unverified Allergy, Unknown, 02/03/19) Patient History Past Medical History: see triage record Last Menstrual Period: 03/26/19 Now: No Reviewed Nursing Documentation: PMH: Agreed; PSxH: Agreed Nursing Documentation-PMH Past Medical History: No Stated History Hx Cardiac Problems: Yes - CHF Hx Asthma: Yes - allergic asthma Hx Cancer: No Hx Neurological Problems: No Review of Systems All Other Systems: negative except mentioned in HPI Physical Exam Vital Signs Date Time Temp Pulse Resp B/P (MAP) Pulse Ox O2 Delivery O2 Flow Rate FiO2 04/12/19 05:38 98.8 106 16 127/71 (89) 100 Room Air Sp02 EP Interpretation: reviewed, normal General Appearance: well appearing, no apparent distress, alert Head: normocephalic, atraumatic Eyes: bilateral eye PERRL, bilateral eye EOMI ENT: uvula midline, moist mucus membranes Neck: supple, thyroid normal, supple/symm/no masses Respiratory: lungs clear, no respiratory distress, no retraction, no accessory muscle use Cardiovascular #1: normal peripheral pulses, regular rate, rhythm, no edema, no gallop, no murmur Gastrointestinal: non tender, soft, no guarding, no rebound Musculoskeletal: normal inspection Neurologic: alert, oriented x3 Psychiatric: mood/affect normal Skin: no rash, warm/dry Medical Decision Making Diagnostic Impression: Primary Impression: Encounter for medication refill ER Course Patient presents with medication refill, will provide patient with a dose of medication here disposition home with return precautions Last Vital Signs Date Time Temp Pulse Resp B/P (MAP) Pulse Ox O2 Delivery O2 Flow Rate FiO2 04/12/19 05:45 98.1 99 16 139/88 100 Room Air Disposition: HOME, SELF-CARE Condition: Stable Scripts Furosemide* (LASIX*) 20 Mg Tablet 20 MG ORAL DAILY, #30 TAB Prov: Wilton Carney MD 04/12/19 Lisinopril (LISINOPRIL*) 20 Mg Tablet 20 MG ORAL DAILY, #30 TAB Prov: Wilton Carney MD 04/12/19 Spironolactone* (ALDACTONE*) 25 Mg Tablet 25 MG ORAL DAILY, #30 TAB Prov: Wilton Carney MD 04/12/19 Referrals: [facility] Patient Instructions: Medicine Refill at the Emergency Department Additional Instructions: The patient was provided with discharge instructions, notified to follow-up with a primary care doctor and or specialist in the next 24-48 hours, and to return to the ED if they have worsening of their symptoms. Please note that this report is being documented using [employer] technology. This can lead to erroneous entry secondary to incorrect interpretation by the dictating instrument. Wilton Carney MD Apr 12, 2019 05:50
[2019-04-12] MEDS ORDERED: Lisinopril 10mg tab ORAL ONE (06:00)
[2019-04-12] MEDS ORDERED: oxyCODONE HCL/Acetaminophen 5/325mg ORAL ONE (06:00)
[2019-04-12] MEDS ORDERED: Spironolactone 50mg tab ORAL ONE (06:00)
[2019-04-12 06:02] VITALS: BP 139/88
== END 2019-04-12 06:04 | disposition home or self-care (01) ==
LOC: EMR 05:44
DX: I50.9 Heart failure, unspecified (principal); Z76.0 Encounter for issue of repeat prescription; J45.909 Unspecified asthma, uncomplicated; Z91.013 Allergy to seafood; Z91.011 Allergy to milk products
CPT/HCPCS: 99282

== ENCOUNTER 2019-05-13 19:48 | Emergency (ER) | payer OTHER ==
[~2019-05-13] VITALS: Ht 165.1 cm; Wt 97.5 kg
--- NOTE | 2019-05-13 20:15 | NUR ---
ED Nurse Note: Pt ambulated to ED from home c/o sore throat since last night, 6/10 pain in throat, denies sob or fever at home. VSS pt is A&Ox4
[2019-05-13 20:16] VITALS: BP 110/73
--- NOTE | 2019-05-13 20:27 | Emergency Room Report ---
History of Present Illness General Chief Complaint: Sore Throat Source: Patient Present Illness HPI 38-year-old female with history of CHF here complaining of 4 days of sore throat chills. Primary care. Patient reports that she also wants a refill of Lasix. Also reports that she was diagnosed with a take antibiotics needed and feels extreme bloating and pantoprazole yet. Patient denies other associated symptoms. Also keep seeking pain. Reports that she specifically wants Dilaudid and started screaming when she realized that she is not going to get any had to be escorted out by security. Stable, denies chest pain shortness of palpitation. Has a stable vital signs. Allergies: Coded Allergies: LACTOSE (Unverified Allergy, Unknown, 02/03/19) Shrimp (Unverified Allergy, Unknown, 02/03/19) Patient History Past Medical History: see triage record Past Surgical History: unable to obtain Pertinent Family History: none Last Menstrual Period: 05/12/19 Now: No Immunizations: UTD Reviewed Nursing Documentation: PMH: Agreed; PSxH: Agreed Nursing Documentation-PMH Past Medical History: No History, Except For Hx Cardiac Problems: Yes - CHF Hx Asthma: Yes - allergic asthma Hx Cancer: No Hx Neurological Problems: No Review of Systems All Other Systems: negative except mentioned in HPI Physical Exam Vital Signs Date Time Temp Pulse Resp B/P (MAP) Pulse Ox O2 Delivery O2 Flow Rate FiO2 05/13/19 19:56 98.4 74 18 110/73 (85) 98 Room Air Sp02 EP Interpretation: reviewed, normal General Appearance: no apparent distress, alert, GCS 15, non-toxic Head: normocephalic, atraumatic Eyes: bilateral eye normal inspection, bilateral eye PERRL ENT: hearing grossly normal, no angioedema, TMs + canals normal, uvula midline , pharyngeal erythema Neck: full range of motion, supple/symm/no masses Respiratory: chest non-tender, lungs clear, normal breath sounds, no wheezing, speaking full sentences Cardiovascular #1: normal inspection, normal peripheral pulses, regular rate, rhythm, no edema, no murmur Gastrointestinal: normal bowel sounds, non tender, soft, non-distended, no guarding, no rebound Musculoskeletal: back normal, gait/station normal, normal range of motion, non- tender, no calf tenderness Neurologic: alert, oriented x3, responsive, motor strength/tone normal, sensory intact, speech normal Psychiatric: judgement/insight normal, memory normal, mood/affect normal, no suicidal/homicidal ideation Skin: no rash Lymphatic: no adenopathy Medical Decision Making PA Attestation Diagnosis and treatment plans were reviewed and discussed with my supervising physician Dr. Carney Diagnostic Impression: Primary Impression: Pharyngitis Additional Impressions: H. pylori infection Encounter for medication refill ER Course 38-year-old female with history of CHF here complaining of 4 days of sore throat chills. Primary care. Patient reports that she also wants a refill of Lasix and spironolactone . Also reports that she was diagnosed with a take antibiotics needed and feels extreme bloating and pantoprazole yet. Patient denies other associated symptoms. Also keep seeking pain. Reports that she specifically wants Dilaudid and started screaming when she realized that she is not going to get any had to be escorted out by security. Stable, denies chest pain shortness of palpitation. Has a stable vital signs. Ddx considered but are not limited to: strep pharyngitis, URI, tonsillitis, peritonsillar abscess, influneza Vital signs: are WNL, pt. is afebrile H&PE are most consistent with: Pharyngitis, possible H. pylori, encounter for medication refill ORDERS: Lasix, spironolactone,, clarithromycin, amoxicillin ED INTERVENTIONS: None required at this time. DISCHARGE: At this time pt. is stable for d/c to home. Will provide printed patient care instructions, and any necessary prescriptions. Care plan and follow up instructions have been discussed with the patient prior to discharge. I offered patient prescription for Tylenol however she refused and she started screaming demanding to get admitted and also given Dilaudid she did not want to have any other primary doctor and she believes that the emergency room is her primary care. Patient had multiple complaints and I advised her that she needs to have established primary care due to her diagnosis of CHF. Last Vital Signs Date Time Temp Pulse Resp B/P (MAP) Pulse Ox O2 Delivery O2 Flow Rate FiO2 05/13/19 20:16 98.4 80 18 110/73 98 Room Air Disposition: HOME, SELF-CARE Condition: Stable Scripts Furosemide* (LASIX*) 20 Mg Tablet 20 MG ORAL DAILY for 14 Days, #14 TAB Prov: Jarred Booth 05/13/19 Spironolactone (ALDACTONE) 25 Mg Tablet 25 MG ORAL DAILY for 14 Days, #14 TAB Prov: Jarred Booth 05/13/19 Clarithromycin* (CLARITHROMYCIN*) 500 Mg Tablet 500 MG PO Q12HR for 14 Days, #28 TAB Prov: Jarred Booth 05/13/19 Amoxicillin* (AMOXIL*) 500 Mg Capsule 2 TAB ORAL EVERY 12 HOURS for 14 Days, #56 CAP Prov: Jarred Booth 05/13/19 Patient Instructions: Gastritis, Adult, [id number], Sore Throat Additional Instructions: Follow-up with your primary care provider at this time I will only refill 2- week supply of your medication I gave you the list of free clinics that you can establish primary Jarred Booth May 13, 2019 20:27
[2019-05-13] MEDS ORDERED: AMOXICILLIN500 MG ORAL (20:31)
[2019-05-13] MEDS ORDERED: ALDACTONE25 MG ORAL (20:31)
[2019-05-13] MEDS ORDERED: FUROSEMIDE20 M1 ORAL (20:31)
[2019-05-13] MEDS ORDERED: CLARITHROMYCIN500 MG PO (20:31)
[2019-05-13 20:45] VITALS: BP 110/73
--- NOTE | 2019-05-13 20:45 | NUR ---
ER DISCHARGE NOTE: Patient is cleared to be discharged per ERMD, pt is aox4, on room air, with stable vital signs. pt was given dc and prescription instructions, pt was able to verbalize understanding, pt id band removed. pt is able to ambulate with steady gait. pt took all belongings. Pt removed from ED by security, pt refused to leave because she stated" i want pain medication, ya'll don't know what ya'll talking about". Nahal aware, no further orders at this time
== END 2019-05-13 20:45 | disposition home or self-care (01) ==
LOC: EMR 20:20
DX: J02.9 Acute pharyngitis, unspecified (principal); B96.81 Helicobacter pylori [H. pylori] as the cause of diseases classified elsewhere; Z76.0 Encounter for issue of repeat prescription; I50.9 Heart failure, unspecified; Z91.011 Allergy to milk products; Z91.013 Allergy to seafood
CPT/HCPCS: 99282